=== PATIENT | female | born 1955 | race Caucasian/White ===

== ENCOUNTER 2018-10-22 18:52 | Emergency (ER) | payer OTHER, BC ==
[~2018-10-22] VITALS: Ht 165.1 cm; Wt 63.5 kg
[2018-10-22 18:53] VITALS: Ht 165.1 cm; Wt 63.5 kg
[2018-10-22 20:01] VITALS: BP 135/90
== END 2018-10-22 20:01 | disposition home or self-care (01) ==
LOC: ED 18:52
DX: L25.9 Unspecified contact dermatitis, unspecified cause (principal); I10 Essential (primary) hypertension; F31.9 Bipolar disorder, unspecified; F20.9 Schizophrenia, unspecified